=== PATIENT | female | born 1990 | race Caucasian/White ===

== ENCOUNTER 2018-09-21 20:25 | Emergency (ER) | payer MEDICAID ==
[~2018-09-21] VITALS: Ht 160 cm; Wt 92.5 kg
[2018-09-21 20:52] VITALS: BP_SYST 128
[2018-09-21 21:18] LABS: STREPTOCOCCUS A SCREEN (RAPID) NEGATIVE (NEGATIVE)
[2018-09-21 21:35] LABS: INFLUENZA A&B ANTIGEN SCREEN NEGATIVE FOR A & B (NEGATIVE)
[2018-09-21 22:55] VITALS: BP_SYST 128
== END 2018-09-21 22:55 | disposition home or self-care (01) ==
LOC: SED 20:25
DX: O99.512 Diseases of the respiratory system complicating pregnancy, second trimester (principal); J06.9 Acute upper respiratory infection, unspecified; Z3A.15 15 weeks gestation of pregnancy
CPT/HCPCS: 36415; 86403; 86710; 87081; 99283